=== PATIENT | male | born 1995 | race Caucasian/White ===

== ENCOUNTER → 2021-09-28 23:32 | Emergency (ER) | payer OTHER ==
[~2021-09-28 23:32] MED LIST: VISTARIL 50 MG50 MG PO
[2021-09-29 00:39] LABS: HEMOGLOBIN 14.3 gm/dl (14.0-17.5); RED BLOOD COUNT 5.03 M/UL (4.20-5.50); WHITE BLOOD COUNT 9.8 K/UL (4.5-11.0)
[2021-09-29 01:38] LABS: BUN/CREATININE RATIO 15 (0-10)
== END | disposition home or self-care (01) ==
LOC: ER1 23:32
PROVIDERS: Physician Assistant
DX: R07.2 Precordial pain (principal); F17.290 Nicotine dependence, other tobacco product, uncomplicated
CPT/HCPCS: 71045; 80053; 82550; 82553; 83690; 84484; 85025; 93005; 99285

== ENCOUNTER 2021-11-09 19:31 | Emergency (ER) | payer OTHER ==
[2021-11-09 22:04] LABS: HEMOGLOBIN 14.4 gm/dl (14.0-17.5); RED BLOOD COUNT 5.14 M/UL (4.20-5.50)
[2021-11-09 22:24] LABS: BUN/CREATININE RATIO 10 (0-10)
== END 2021-11-09 22:48 | disposition left against medical advice (07) ==
LOC: ER1 19:31
PROVIDERS: Physician Assistant
DX: R07.9 Chest pain, unspecified (principal); F17.200 Nicotine dependence, unspecified, uncomplicated
CPT/HCPCS: 71045; 80053; 82550; 82553; 84484; 85025; 99283